=== PATIENT | male | born 1965 ===

== ENCOUNTER 2022-05-03 11:58 | Emergency (ER) | payer OTHER, SELFPAY ==
[~2022-05-03] VITALS: Ht 182.9 cm; Wt 90.0 kg
[2022-05-03] MEDS ORDERED: ETOMIDATE INJ 20MG/10ML VIAL IV STA (12:04)
[2022-05-03] MEDS ORDERED: EPINEPHrine 1MG/10ML SYRINGE 1.5IN IV STA ×3 (12:04→12:34)
[2022-05-03] MEDS ORDERED: SUCCINYLCHOLINE INJ 200 MG/10 ML VIAL (J0330) IV STA (12:07)
[2022-05-03] MEDS ORDERED: NS 1,000 ML IV ONE (12:15)
[2022-05-03] MEDS ORDERED: ceFAZolin SOD 2 GM in IV 1 EA IV ONE (12:15)
[2022-05-03] MEDS ORDERED: LIDOCAINE 2% 5ML JELLY UROJET TOP ONE (12:15)
[2022-05-03] MEDS ORDERED: CALCIUM CHLORIDE 10% 1 GM/10 ML SYR IV ONE (12:15)
[2022-05-03] MEDS ORDERED: TRANEXAMIC ACID 100 MG/ML 10ML VIAL As Ordered ONE (12:18)
[2022-05-03] MEDS ORDERED: TRANEXAMIC ACID INJection 1,000 MG in NS 100 ML IV ONE ×4 (12:20)
[2022-05-03] MEDS ORDERED: BOOSTRIX/ADACEL VACCINE (DIPHTH/PERTUSS/ACELL/TETANUS) 0.5ML SYR IM.IMMUN ONE (12:20)
[2022-05-03] MEDS ORDERED: NOREPINEPHRINE/DEXTROSE 8 MG in IV 1 EA IV SCH (12:24)
[2022-05-03] MEDS ORDERED: NOREPINEPHRINE 8MG IN 500ML DEXTROSE 5% BAG As Ordered ONE (12:30)
[2022-05-03] MEDS ORDERED: CALCIUM GLUCONATE 1,000MG/10ML VIAL (100MG/ML) (J0610) As Ordered ONE (12:34)
[2022-05-03] MEDS ORDERED: SODIUM BICARBONATE 8.4% INJ 50 ML SYRINGE IV STA (12:35)
[2022-05-03] MEDS ORDERED: CALCIUM GLUCONATE 1,000 MG in D5W MINI-BAG PLUS 100 ML IV ONE ×2 (12:40→13:00)
[2022-05-03 12:47] LABS: BASO # 0.1 10^3/uL (0.0-0.2); BASO % 0.8 % (0.0-1.0); EOS # 0.2 10^3/uL (0.0-0.5); EOS % 3.1 % (0.0-3.0); HEMATOCRIT 42.6 % (42.0-52.0); HEMOGLOBIN 13.7 g/dl (13.5-17.5); LYMPH # 1.8 10^3/uL (1.5-5.0); LYMPH % 28.9 % (24.0-44.0); MEAN CORPUSCULAR HEMOGLOBIN 31.9 pg (27.0-33.0); MEAN CORPUSCULAR HGB CONC 32.2 g/dl (32.0-36.5); MEAN CORPUSCULAR VOLUME 99.1 fl (80.0-96.0); MONO # 0.2 10^3/uL (0.0-0.8); MONO % 3.6 % (2.0-8.0); NEUTROPHILS # 3.9 10^3/uL (1.5-8.5); NEUTROPHILS % 61.2 % (36.0-66.0); PLATELET COUNT, AUTOMATED 236 10^3/uL (150-450); WHITE BLOOD COUNT 6.4 10^3/uL (4.0-10.0)
[2022-05-03 12:51] LABS: APPEARANCE, URINE MANUAL CLEAR (CLEAR); COLOR, URINE MANUAL YELLOW (YELLOW)
[2022-05-03 12:52] LABS: BILIRUBIN, URINE MANUAL NEGATIVE (NEGATIVE); BLOOD URINE MANUAL POSITIVE (NEGATIVE); GLUCOSE, URINE (UA) MANUAL NEGATIVE (NEGATIVE); KETONE, URINE MANUAL NEGATIVE (NEGATIVE); LEUKOCYTE ESTERASE, URINE MAN NEGATIVE (NEGATIVE); NITRITE, URINE MANUAL NEGATIVE (NEGATIVE); PROTEIN, URINE MANUAL NEGATIVE (NEGATIVE); UROBILINOGEN, URINE MANUAL NORMAL (NORMAL)
[2022-05-03 12:52] LABS: ABG BASE EXCESS -17.2 (-2.0-2.0); ABG HCO3 13.4 MEQ/L (22.0-26.0); ABG O2 SATURATION 95.6 % (95.0-99.0); ABG PARTIAL PRESSURE CO2 52.5 mmHg (35.0-45.0); ABG PARTIAL PRESSURE O2 106.2 mmHg (75.0-100.0); ABG STANDARD HCO3 11.5 MEQ/L (22.0-26.0)
[2022-05-03 12:54] VITALS: BP 98/57
[2022-05-03 12:55] LABS: ABG pH (ARTERIAL) 7.026 UNITS (7.350-7.450)
[2022-05-03 13:04] LABS: CK-MB VALUE MASS 17.1 NG/ML (<3.6); MB/CK RELATIVE INDEX 2.36 (< OR =4)
[2022-05-03 13:08] LABS: ALBUMIN 3.4 GM/DL (3.2-5.2); ALT/SGPT 215 U/L (12-78); AMYLASE 184 U/L (25-115); BILIRUBIN,DIRECT 0.1 MG/DL (0.0-0.2); BILIRUBIN,TOTAL 0.8 MG/DL (0.2-1.0); ETHYL ALCOHOL (ETHANOL) < 0.003 % (0.000-0.010); LIPASE 2916 U/L (73-393); TOTAL PROTEIN 6.6 GM/DL (6.4-8.2)
[2022-05-03 13:11] LABS: INR 1.22; PARTIAL THROMBOPLASTIN TIME 27.5 SECONDS (25.9-37.0); PROTHROMBIN TIME 15.8 SECONDS (12.7-14.5)
[2022-05-03 13:12] LABS: BACTERIA, URINE NONE SEEN; HYALINE CAST, URINE NONE SEEN /lpf (0-1); SQUAMOUS EPITHELIAL CELL URINE SMALL AMOUNT /hpf (SMALL AMT)
[2022-05-03 13:13] LABS: SPERM, URINE LARGE AMOUNT
[2022-05-03 13:21] LABS: RSV AMPLIFICATION NEGATIVE (NEGATIVE)
[2022-05-03 13:28] LABS: AMPHETAMINES LEVEL URINE NEGATIVE (NEGATIVE); BARBITURATES URINE NEGATIVE (NEGATIVE); BENZODIAZEPINES URINE NEGATIVE (NEGATIVE); CANNABINOIDS URINE POSITIVE (NEGATIVE); COCAINE METABOLITE URINE POSITIVE (NEGATIVE); METHADONE URINE NEGATIVE (NEGATIVE); OPIATES URINE NEGATIVE (NEGATIVE); PHENCYCLIDINE URINE NEGATIVE (NEGATIVE)
[2022-05-03] MEDS ORDERED: SUCCINYLCHOLINE 100 MG/5 ML SYRINGE (J0330) ONE (16:19)
[2022-05-03] MEDS ORDERED: ETOMIDATE INJ 20MG/10ML VIAL ONE (16:19)
[2022-05-03] MEDS ORDERED: EPINEPHrine 1MG/10ML SYRINGE 1.5IN ONE (16:20)
[2022-05-03] MEDS ORDERED: SODIUM BICARBONATE 8.4% INJ 50 ML SYRINGE ONE (16:20)
== END 2022-05-03 13:03 | disposition short-term general hospital (02) ==
LOC: M ED 11:58 → EDBD 11:58 → M ED 13:03
DX: I46.8 Cardiac arrest due to other underlying condition (principal); J98.59 Other diseases of mediastinum, not elsewhere classified; S09.90XA Unspecified injury of head, initial encounter; S82.042B Displaced comminuted fracture of left patella, initial encounter for open fracture type I or II; S22.41XA Multiple fractures of ribs, right side, initial encounter for closed fracture; S22.9XXA Fracture of bony thorax, part unspecified, initial encounter for closed fracture; V23.4XXA Motorcycle driver injured in collision with car, pick-up truck or van in traffic accident, initial encounter; Y92.410 Unspecified street and highway as the place of occurrence of the external cause
CPT/HCPCS: 31500; 32551; 36430; 36600; 51702; 71045; 80047; 80076; 80307; 81000; 82077; 82150; 82550; 82553; 82803; 83605; 83690; 85025; 85610; 85730; 86850; 86900; 86901; 86920; 86927; 87631; 90471; 90715; 93005; 93041; 96365; 96367; 96368; 96375; 96376; 99291; 99292; J0171; J0330; J0610; J0690; P9016; P9034